=== PATIENT | female | born 1965 | race Caucasian/White ===

== ENCOUNTER 2021-08-11 14:10 | Outpatient (CLI) | payer SELFPAY ==
--- NOTE | 2021-08-11 | ECHO_ITS ---
Patient Info Name: Jennie Riggs Age: 56 years : 1965 Gender: Female Ht: 64 in Wt: 208 lbs BSA: 2.11 m2 HR: 69 bpm BP: 134 / 89 mmHg Technical Quality: Fair Exam Date: 08/11/2021 2:45 PM Exam Location: [facility] Patient Status: Outpatient Admit Date: 08/11/2021 Staff Ordering Physician: Verónica, Jey WILSON Chief Design Drafter: Shelia Donato RDCS Attending Provider: Verónica, Jey WILSON Exam Type: CA echo doppler color flow Study Info Indications - MENDEZ Complete two-dimensional, color flow and Doppler transthoracic echocardiogram is performed. Summary 1. Complete two-dimensional, color flow and Doppler transthoracic echocardiogram is performed. 2. Left ventricular chamber dimension is normal. 3. Ventricular septum is sigmoid shaped. No LVOT obstruction. 4. Left ventricular systolic function is normal, estimated at 65-70%. 5. There is mildly increased left ventricular wall thickness. 6. The left ventricular diastolic function is grade I diastolic dysfunction. 7. E/e' 9 is minimally elevated. 8. There is trace mitral valve regurgitation. 9. No pulmonary hypertension, estimated pulmonary arterial systolic pressure is 27 mmHg. Left Ventricle E/e' 9 is minimally elevated. Ventricular septum is sigmoid shaped. No LVOT obstruction. Left ventricular chamber dimension is normal. Left ventricular systolic function is normal, estimated at 65-70%. There is mildly increased left ventricular wall thickness. The left ventricular diastolic function is grade I diastolic dysfunction. Right Ventricle Right ventricular chamber dimension is normal. Right ventricular systolic function is normal. Left Atria Left atrial chamber dimension is normal. Right Atria Right atrial chamber dimension is normal. Aortic Valve The aortic valve is trileaflet. There is no aortic valve stenosis. There is no aortic valve regurgitation. Pulmonic Valve There is no pulmonic regurgitation. Mitral Valve There is no mitral valve stenosis. There is trace mitral valve regurgitation. Tricuspid Valve There is no tricuspid valve regurgitation. No pulmonary hypertension, estimated pulmonary arterial systolic pressure is 27 mmHg. Pericardium/Pleural There is no pericardial effusion. Inferior Vena Cava Normal inferior vena cava with >50% collapse upon inspiration consistent with normal right atrial pressure, 5 mmHg. Aorta The aortic root size at the sinus of Valsalva is normal. Left Ventricular Outflow Tract Name Value Normal LVOT 2D LVOT Diameter 2.0 cm LVOT Doppler LVOT Peak Gradient 5 mmHg LVOT Mean Gradient 3 mmHg LVOT VTI 27 cm LVOT VTI/AV VTI Ratio 0.9 LVOT Stroke Volume 79 ml LVOT CO 16.0 l/min LVOT CI 7.6 l/min/m2 Pulmonic Valve Name Value Normal
== END 2021-08-11 14:11 | disposition home or self-care (01) ==
PROVIDERS: PCP Family Medicine; Visit Provider Family Medicine
DX: R06.09 Other forms of dyspnea (principal)
CPT/HCPCS: 93306

== ENCOUNTER → 2021-08-11 15:56 | Outpatient (CLI) | payer SELFPAY ==
--- NOTE | ~2021-08-11 | XR_ITS ---
EXAMINATION: XR chest 2V DATE: 08/11/2021 16:25 INDICATION: Dyspnea on exertion TECHNIQUE: frontal and lateral views of the chest were obtained. COMPARISON: Chest radiograph dated 01/17/2018 FINDINGS: Again seen is a small calcified nodule at the lateral left lung base consistent with old granulomatou s disease. The lungs remain otherwise with no new airspace opacities, pulmonary edema, pleural effusi on or pneumothorax. The cardiomediastinal silhouette is normal. Left pectoral cardiac monitoring shasta ce which projects along the skin surface likely external to the patient at the upper inner left breas t. Mild thoracic spondylosis. IMPRESSION: 1. No acute cardiopulmonary disease. Reviewed, dictated and finalized at location A. TROENCEPHALOGRAPH TECHNOLOGIST
== END ==
PROVIDERS: Visit Provider Family Medicine
DX: R06.09 Other forms of dyspnea (principal)
CPT/HCPCS: 71046

== ENCOUNTER → 2023-08-02 14:32 | Outpatient (CLI) | payer SELFPAY ==
--- NOTE | ~2023-08-02 | US_ITS ---
EXAMINATION: US soft tissue LE RT, US soft tissue LE LT DATE: 08/02/2023 15:03 INDICATION: Localized swelling, mass and lump at the bilateral lower limbs. TECHNIQUE: Multiple grayscale and Doppler ultrasound images of the region of concern at the medial ri ght thigh and at the medial left calf were obtained. COMPARISON: None FINDINGS: There is a 4.2 x 3.1 x 1.9 cm ovoid mass in the superficial subcutaneous tissues at the region of con cern at the medial right thigh. The lesion is isoechoic and with identical echotexture and ventricles septated architecture as the surrounding subcutaneous fat which would be most consistent with a lipo ma. There is a similar appearing 3.9 x 3.4 x 1.4 cm mass at the medial left lower leg region of den rn also most consistent with a lipoma. No other masses or fluid collections identified. IMPRESSION: 1. 4.2 x 3.1 x 1.9 cm ovoid mass at the medial right thigh and 3.9 x 3.4 x 1.4 cm mass in the medial left lower leg both with appearance most consistent with and statistically most likely to represent l ipomas. Reviewed, dictated and finalized at location B. NCIAL RETIREMENT PLAN SPECIALIST IMPRESSION: 1. 4.2 x 3.1 x 1.9 cm ovoid mass at the medial right thigh and 3.9 x 3.4 x 1.4 cm mass in the medial left lower leg both with appearance most consistent with and statistically most likely to represent lipomas.
== END ==
PROVIDERS: PCP Family Medicine; Visit Provider Family Medicine
DX: R22.43 Localized swelling, mass and lump, lower limb, bilateral (principal)
CPT/HCPCS: 76882